=== PATIENT | male | born 1985 | race Caucasian/White ===

== ENCOUNTER → 2019-04-17 | Outpatient (CLI) | payer OTHER ==
[2019-04-17 14:28] LABS: ALBUMIN 4.6 g/dL (3.5-5.0); URINE APPEARANCE CLEAR; URINE COLOR YELLOW
[2019-04-17 14:29] LABS: PH-URINE 6.5 (5.0 - 8.0); POTASSIUM 3.8 mmol/L (3.5-5.1); URINE BILIRUBIN NEGATIVE (NEGATIVE); URINE BLOOD NEGATIVE (NEGATIVE); URINE GLUCOSE NEGATIVE (NEGATIVE); URINE KETONE NEGATIVE (NEGATIVE); URINE LEUKOCYTE ESTERASE NEGATIVE (NEGATIVE); URINE NITRATE NEGATIVE (NEGATIVE); URINE PROTEIN(semi-quant) TRACE mg/dL (NEGATIVE); URINE UROBILINOGEN NORMAL (NORMAL); URINE WBC 0-1 /hpf (0-3)
[2019-04-17 14:30] LABS: CALCIUM 8.9 mg/dL (8.3-10.5)
[2019-04-17 14:31] LABS: TOTAL PROTEIN 8.1 g/dL (6.4-8.3)
[2019-04-17 14:33] LABS: TOTAL BILIRUBIN 0.3 mg/dL (0.2-1.2)
== END ==
LOC: RAD 14:03
PROVIDERS: Family Medicine
DX: I10 Essential (primary) hypertension (principal); F41.8 Other specified anxiety disorders

== ENCOUNTER 2019-11-23 18:41 | Emergency (ER) | payer OTHER ==
[~2019-11-23] VITALS: Ht 170.2 cm; Wt 95.5 kg
[2019-11-23] MEDS ORDERED: LEXAPRO20 M1 PO (19:08)
[2019-11-23] MEDS ORDERED: METOPROLOL SUC200 M1 PO (19:08)
[2019-11-23 20:00] LABS: BASO # 0.1 (0.02-0.10); EOS # 0.2 (0.04-0.40); EOS % 2.1 % (0.0-4.0); HEMATOCRIT 42.7 % (42.0-52.0); HEMOGLOBIN 14.6 g/dL (13.5-18.0); LYMPH# 2.3 (1.50-4.00); MEAN CELL VOLUME 86 fl (78-100); MEAN CORPUSCULAR HEMOGLOBIN 29 pg (27-31); MEAN CORPUSCULAR HGB CONC 34 g/dL (33-37); MEAN PLATELET VOLUME 10.3 fl (7.4-10.4); NEU # 7.2 (1.40-6.50); PLATELET COUNT 242 K/mm3 (130-400); RED BLOOD COUNT 4.97 M/mm3 (4.20-5.60); RED CELL DISTRIBUTION WIDTH 13.2 % (11.5-14.5); WHITE BLOOD COUNT 10.8 K/mm3 (4.8-10.8)
[2019-11-23 20:02] LABS: ALBUMIN 4.4 g/dL (3.5-5.0); POTASSIUM 3.6 mmol/L (3.5-5.1)
[2019-11-23 20:03] LABS: CALCIUM 9.3 mg/dL (8.3-10.5)
[2019-11-23 20:05] LABS: TOTAL PROTEIN 7.7 g/dL (6.4-8.3)
[2019-11-23 20:06] LABS: TOTAL BILIRUBIN 0.3 mg/dL (0.2-1.2)
[2019-11-23 20:21] LABS: PH-URINE 5.5 (5.0 - 8.0); URINE APPEARANCE CLEAR; URINE BILIRUBIN NEGATIVE (NEGATIVE); URINE BLOOD NEGATIVE (NEGATIVE); URINE COLOR LT YELLOW; URINE GLUCOSE NEGATIVE (NEGATIVE); URINE KETONE 1+ (NEGATIVE); URINE NITRATE NEGATIVE (NEGATIVE); URINE PROTEIN(semi-quant) NEGATIVE (NEGATIVE); URINE UROBILINOGEN NORMAL (NORMAL)
[2019-11-23 20:22] LABS: URINE LEUKOCYTE ESTERASE NEGATIVE (NEGATIVE); URINE WBC 0-1 /hpf (0-3)
[2019-11-23 21:58] VITALS: BP 161/108
== END 2019-11-23 21:58 | disposition home or self-care (01) ==
LOC: ED 18:41
PROVIDERS: Nurse Practitioner Family
DX: I10 Essential (primary) hypertension (principal); F41.9 Anxiety disorder, unspecified; Z56.6 Other physical and mental strain related to work; F17.210 Nicotine dependence, cigarettes, uncomplicated; Z79.891 Long term (current) use of opiate analgesic